=== PATIENT | female | born 1935 | race Caucasian/White ===

== ENCOUNTER 2016-11-21 18:47 | Emergency (ER) | payer MEDICARE ==
[2016-11-21 20:33] LABS: SPECIFIC GRAVITY 1.015 (1.001-1.030); URINE BILIRUBIN NEGATIVE (NEGATIVE); URINE BLOOD 1+ (NEGATIVE); URINE GLUCOSE (UA) NEGATIVE (NEGATIVE); URINE LEUKOCYTE ESTERASE NEGATIVE (NEGATIVE); URINE NITRITE NEGATIVE (NEGATIVE); URINE PROTEIN NEGATIVE (NEGATIVE); URINE UROBILINOGEN NORMAL (0-1 mg/dl)
[2016-11-21 20:43] LABS: URINE APPEARANCE CLEAR; URINE COLOR YELLOW
[2016-11-21 21:07] LABS: ABSOLUTE NEUTROPHIL COUNT 4.1 K/mm3 (1.8-7.7); BASO % 0.5 % (0.2-1.0); EOS # 0.1 (0.0-0.5); EOS % 1.1 % (0.9-2.9); HEMATOCRIT 26.5 % (37.0-47.0); HEMOGLOBIN 8.9 gm/l (12.0-16.0); IMM NEUT% 0.2 % (0-1); LYMPH # 1.6 (1.0-4.8); LYMPH % 25.9 % (15-45); MEAN CELL VOLUME 84.1 fl (81.0-99.0); MEAN CORPUSCULAR HEMOGLOBIN 28.3 pg (27.0-31.0); MEAN CORPUSCULAR HGB CONC 33.6 g/dl (33.0-37.0); MEAN PLATELET VOLUME 11.6 fl (7.4-10.4); MONO # 0.5 (0.0-0.8); MONO % 7.6 % (4-12); NEUT % 64.7 % (43-75); PLATELET COUNT 264 K/mm3 (130-400); RED CELL DISTRIBUTION WIDTH 13.6 % (11.5-14.5)
[2016-11-21 21:17] LABS: ALB/GLOB RATIO 1.2 (>1.0); ALBUMIN 3.6 gm/dL (3.5-5.7); CALCIUM 8.4 mg/dL (8.6-10.3); MAGNESIUM 1.7 mg/dL (1.9-2.7)
[2016-11-21 21:23] LABS: URINE RBC 0-2 /hpf
[2016-11-21 21:24] LABS: URINE BACTERIA RARE; URINE EPITHELIAL CELLS 0-2 /hpf; URINE WBC 0-2 /hpf
[2016-11-21 21:43] LABS: TROPONIN I < 0.01 ng/ml (0.0-0.06)
[2016-11-21 21:47] LABS: CKMB ISOENZYME 1.4 ng/ml (0.6-6.3)
[2016-11-21 21:53] LABS: THYROID STIMULATING HORMONE 3.14 uIU/ml (0.34-5.60)
[2016-11-21] MEDS ORDERED: MAGNESIUM SULFATE 2 G/50 ML 50 ML IV ONE (22:00)
--- NOTE | 2016-11-22 07:51 | RAD ---
History: Flulike symptoms with weakness. Comparison: 07/24/2016. Technique: 2 views Findings: The soft tissue and bony structures are unremarkable. The heart size is appropriate. No infiltrate, effusion or pneumothorax is observed. The hilar and mediastinal structures are normal. Impression: 1. No active intra-thoracic disease.
== END 2016-11-22 00:43 | disposition home or self-care (01) ==
LOC: ED 18:47
DX: J11.1 Influenza due to unidentified influenza virus with other respiratory manifestations (principal); E83.42 Hypomagnesemia; R53.1 Weakness
CPT/HCPCS: 85025; 82553; 80053; 83735; 84443; 84484; 81001; 71020; 99283 ×2; 96365; 93005; J3475